=== PATIENT | male | born 1980 | race African-American/Black ===

== ENCOUNTER 2018-12-27 01:10 | Emergency (ER) | payer OTHER ==
[~2018-12-27] VITALS: Ht 188 cm; Wt 77.1 kg
[2018-12-27] MEDS ORDERED: LISINOPRIL40 MG PO ×2 (01:14→05:00)
[2018-12-27] MEDS ORDERED: NORVASC10 MG PO (01:15)
[2018-12-27] MEDS ORDERED: MOBIC15 MG PO (05:00)
[2018-12-27] MEDS ORDERED: CARVEDILOL12.5 MG PO (05:00)
[2018-12-27] MEDS ORDERED: HYDROCODON-ACE1 EAC7 PO (05:00)
[2018-12-27 05:27] VITALS: BP 113/75
== END 2018-12-27 05:27 | disposition home or self-care (01) ==
LOC: M.ERS 01:10
DX: M25.462 Effusion, left knee (principal); M25.562 Pain in left knee; I10 Essential (primary) hypertension

== ENCOUNTER 2019-01-22 05:07 | Emergency (ER) | payer OTHER ==
[~2019-01-22] VITALS: Ht 188 cm; Wt 79.4 kg
[~2019-01-22 05:07] MED LIST: CARVEDILOL12.5 MG PO; HYDROCODON-ACE1 EAC7 PO; LISINOPRIL40 MG PO; MOBIC15 MG PO; NORVASC10 MG PO
[2019-01-22] MEDS ORDERED: ULTRAM 50MG TAB50 MG PO (05:10)
[2019-01-22 05:11] VITALS: BP 137/96
== END 2019-01-22 05:20 | disposition home or self-care (01) ==
LOC: M.ERS 05:07
DX: M25.562 Pain in left knee (principal); I10 Essential (primary) hypertension; Z79.899 Other long term (current) drug therapy